=== PATIENT | female | born 1930 | race Caucasian/White ===

== ENCOUNTER → 2017-02-06 | Outpatient (CLI) | payer MEDICARE, BC | END | disposition home or self-care (01) | LOC: PCVCCLINIC 08:00 | PROVIDERS: ATTEND Internal Medicine | DX: I48.91 Unspecified atrial fibrillation (principal); I10 Essential (primary) hypertension; E78.5 Hyperlipidemia, unspecified; R43.2 Parageusia; Z88.2 Allergy status to sulfonamides; Z79.01 Long term (current) use of anticoagulants; Z79.899 Other long term (current) drug therapy; Z86.718 Personal history of other venous thrombosis and embolism | CPT/HCPCS: G0463 ==

== ENCOUNTER → 2017-02-18 | Outpatient (CLI) | payer MEDICARE, BC ==
[~2017-02-18] MED LIST: REGADENOSON 0.4 MG/5 ML DISP.SYRIN. IV ONE
--- NOTE | 2017-02-20 16:09 | PCVCIMAG ---
APPROVED REPORT Exam: Nuclear Stress Test Indication: Afib Patient Location: Out-Patient Stress Nurse: Ivis Brewster RN OR Tech:Solomon Frazier NMTCB Ht: 5 ft 6 in Wt: 140 lbs BSA: 1.72 m2 HR: 68 bpm BP: 191/84 mmHg BMI: 22.5 Rhythm: RBBB Medical History Medical History: Age, HTN, Afib, Medications: Lisinopril, Mevacor, Coumadin Allergies: Bactrim Pretest Chest Pain Characteristics: No chest pain Exercise History: Physically active Physical Disabilities: Uses a walker NM EXAM: Myocardial Perfusion REST/STRESS Imaging Protocol: Rest Tc-99m/Stress Tc-99m 1 day Resting Data Rest SPECT myocardial perfusion imaging was performed in supine position 45 minutes following the intravenous injection of 8.4 mCi of Tc-99m Sestamibi. Time of rest injection: 0910 Date: 02/18/2017 Pharmacologic Stress Pharmacologic stress test was performed by injecting Regadenoson 0.4 mg IV push followed by the intravenous injection of 25 mCi of Tc-99m Sestamibi. Time of stress injection: 1030 Date: 02/18/2017 The images were gated to evaluate regional wall motion and calculate left ventricular ejection fraction. Study Data Post stress, the left ventricular ejection was 67%.. SSS: 0 SRS: 0 SDS: 0 TID = 0.78. Perfusion Normal left ventricular perfusion. Wall Motion Normal left ventricular wall motion. Nuclear Conclusion 1. low risk study Interpreted by: Anika Burch MD Electronically Approved: 02/20/2017 16:07:56 Stress Test Details Stress Test: Pharmacologic stress testing performed using 0.4 mg of regadenoson per 5 mL given IV over 10 seconds. Reason for pharmacologic stress test: physical limitation. HR Resting HR: 68 bpmMax Heart Rate (APMHR): 135 bpm Max HR Achieved: 89 bpmTarget HR (85% APMHR): 114 bpm % of APMHR: 65 Recovery HR: 85 bpm BP Resting BP: 191/84 mmHg Max BP: 169/74 mmHg Recovery BP: 140/62 mmHg ECG Resting ECG: Sinus Rhythm, RBBB Stress ECG: Sinus Rhythm, RBBB Recovery ECG: Sinus Rhythm, RBBB Clinical Reason for Termination: Completed protocol Stress Symptoms: Chest Pain, Symptoms resolved with caffeine. Stress ECG Conclusion 1. ADEQUATE RESPONSE TO IV LEXISCAN 2. INADEQUATE HEART RATE FOR ECG DIAGNOSIS <Conclusion> 1. ADEQUATE RESPONSE TO IV LEXISCAN 2. INADEQUATE HEART RATE FOR ECG DIAGNOSIS
== END | disposition home or self-care (01) ==
LOC: PCVCIMAG 08:57
PROVIDERS: ATTEND Internal Medicine
DX: I45.10 Unspecified right bundle-branch block (principal); I48.91 Unspecified atrial fibrillation; I10 Essential (primary) hypertension; E78.5 Hyperlipidemia, unspecified; I48.92 Unspecified atrial flutter; Z79.01 Long term (current) use of anticoagulants
CPT/HCPCS: 78452; 93017; A9500; J2785

== ENCOUNTER → 2017-12-23 | Outpatient (CLI) | payer MEDICARE, BC | END | disposition home or self-care (01) | LOC: PCVCCLINIC 15:14 | DX: I10 Essential (primary) hypertension (principal); I48.0 Paroxysmal atrial fibrillation; Z79.899 Other long term (current) drug therapy | CPT/HCPCS: 80061 ==

== ENCOUNTER → 2018-06-25 | Outpatient (CLI) | payer MEDICARE, BC | END | disposition home or self-care (01) | LOC: PCVCCLINIC 14:13 | PROVIDERS: ATTEND Internal Medicine | DX: E78.5 Hyperlipidemia, unspecified (principal); I48.91 Unspecified atrial fibrillation; E03.9 Hypothyroidism, unspecified; I48.0 Paroxysmal atrial fibrillation | CPT/HCPCS: 36415; 80061 ==

== ENCOUNTER → 2018-07-13 | Outpatient (CLI) | payer MEDICARE, BC ==
--- NOTE | 2018-07-13 11:41 | PCVCIMAG ---
APPROVED REPORT Study performed: 07/13/2018 10:20:25 EXAM: Comprehensive 2D, Doppler, and color-flow Echocardiogram Patient Location: Echo lab Status: routine BSA: 1.73 HR: 90 bpmBP: 120/68 mmHg Rhythm: Atrial Fibrillation Other Information Study Quality: Adequate Risk Factors: Cardiac Risk Factors: HTN, Hyperlipidemia Indications Atrial Fibrillation 2D Dimensions IVSd: 9.80 (7-11mm)LVOT Diam: 20.00 (18-24mm) LVDd: 40.33 mm PWd: 10.07 (7-11mm)Ascending Ao: 28.40 (22-36mm) LVDs: 30.26 (25-40mm) Left Atrium: 41.18 (27-40mm) Aortic Root: 28.21 mm LV Single Plane 4CH: 53.06 % LV Single Plane 2CH: 48.74 % Biplane EF: 50.3 % Volumes Left Atrial Volume (Systole) Single Plane 4CH: 73.62 mLSingle Plane 2CH: 53.49 mL LA ESV Index: 40.00 mL/m2 Aortic Valve AoV Peak Fer.: 0.90 m/s AO Peak Gr.: 3.26 mmHgLVOT Max P.18 mmHg LVOT Max V: 0.74 m/s JOANNA Vmax: 2.58 cm2 AI Vmax: 4.05 m/s AI [place]: 2.17 m/s2 AI PHT: 553.05 ms Pulmonary Valve PV Peak Fer.: 0.71 m/sPV Peak Gr.: 2.04 mmHg Tricuspid Valve TR Peak Fer.: 2.51 m/sRAP Estimate: 7.00 mmHg TR Peak Gr.: 25.26 mmHg PA Pressure: 32.00 mmHg Left Ventricle The left ventricle is normal size. There is normal LV segmental wall motion. There is normal left ventricular wall thickness. Left ventricular systolic function is normal. The left ventricular ejection fraction is within the normal range. LVEF is 50-55%. This study is not technically sufficient to allow evaluation of the LV diastolic function due to atrial fibrillation. Right Ventricle The right ventricle is normal size. The right ventricular systolic function is normal. Atria Left atrium is mildly dilated. Right atrium is dilated. Aortic Valve The Aortic valve is sclerotic. Mild to moderate aortic regurgitation. There is no aortic valvular stenosis. Mitral Valve There is mitral annular calcification. Mild mitral regurgitation. No evidence of mitral valve stenosis. Tricuspid Valve The tricuspid valve is normal in structure. Mild tricuspid regurgitation. Pulmonary artery pressure is 32 mmHg. Pulmonic Valve The pulmonary valve is normal in structure. Trace pulmonic regurgitation. Great Vessels The aortic root is normal in size. IVC is normal in size and collapses >50% with inspiration. Pericardium There is no pericardial effusion. <Conclusion> The left ventricle is normal size. LVEF is 50-55%. Left atrium is mildly dilated. Right atrium is dilated. The Aortic valve is sclerotic. Mild to moderate aortic regurgitation. There is mitral annular calcification. Mild mitral regurgitation. The tricuspid valve is normal in structure. Mild tricuspid regurgitation. Pulmonary artery pressure is 32 mmHg. The pulmonary valve is normal in structure. Trace pulmonic regurgitation. There is no pericardial effusion.
== END | disposition home or self-care (01) ==
LOC: PCVCIMAG 10:27
PROVIDERS: ATTEND Internal Medicine
DX: Z01.810 Encounter for preprocedural cardiovascular examination (principal); I08.3 Combined rheumatic disorders of mitral, aortic and tricuspid valves; I48.0 Paroxysmal atrial fibrillation; I10 Essential (primary) hypertension; E78.5 Hyperlipidemia, unspecified; R60.0 Localized edema; I48.92 Unspecified atrial flutter
CPT/HCPCS: 93306; G0463

== ENCOUNTER → 2018-08-13 | Outpatient (CLI) | payer MEDICARE, BC | END | disposition home or self-care (01) | LOC: PCVCCLINIC 11:04 | PROVIDERS: ATTEND Internal Medicine | DX: Z01.810 Encounter for preprocedural cardiovascular examination (principal); I48.91 Unspecified atrial fibrillation; I10 Essential (primary) hypertension; I38 Endocarditis, valve unspecified | CPT/HCPCS: G0463 ==